=== PATIENT | female | born 1955 | race Caucasian/White ===

== ENCOUNTER → 2017-06-27 | Day surgery (SDC) | payer BC ==
[~2017-06-27] MED LIST: AMLODIPINE BESYL5 MG PO; BENICAR PO; HYDROCHLOROTH12.5 M1 PO; JANUVIA100 MG PO; METFORMIN HCL500 M4 PO; MULTI VITAMIN1 EACH PO; ZOCOR20 MG PO
--- NOTE | ~2017-06-27 | OR ---
Unit #: [id number] #: [id number] Patient: SCOTTY CARLTON [id number] [address] [address] [id number] O MR#: [id number] NAME: SCOTTY CARLTON ROOM: Date of Procedure: 06/27/2017 Admission Date: 06/27/2017 Surgeon: Tristen Goss M.D. : 1955 Attending Physician: Tristen Goss M.D. OPERATIVE REPORT PREOPERATIVE DIAGNOSIS Enlarging Pilar cyst x2 of scalp. POSTOPERATIVE DIAGNOSIS Enlarging Pilar cyst x2 of scalp. PROCEDURE PERFORMED Excision of enlarging Pilar cyst of anterior scalp x2 (1 cm each) with primary closure. ANESTHESIA Versed 2 mg and Demerol 50 mg each IV push in divided dosages with continuous cardiac and O2 saturation monitoring, 1% Xylocaine plain local anesthesia. FINDINGS Each was consistent with a Pilar cyst and was completely excised and sent to pathology. SPECIMENS Sent to pathology. COMPLICATIONS None apparent. CONDITION The patient tolerated the procedure well. INDICATIONS FOR PROCEDURE The patient is a 62-year-old white female, who has enlarging Pilar cyst in the anterior scalp x2. She presents at this time for excision of her pathologic diagnosis and treatment. DESCRIPTION OF PROCEDURE After obtaining informed consent, the patient was brought to the operating room and after adequate IV sedation, had the two areas prepped and draped in a sterile fashion. Each area was anesthetized with 1% Xylocaine plain local anesthesia. An elliptical incision was made with a knife over the top of the cyst and the entire cyst wall was completely dissected free and removed. In each location, the wound was copiously irrigated. Good hemostasis was obtained with Bovie and had primary closure performed with Unit #: [id number] #: [id number] Patient: SCOTTY CARLTON interrupted 3-0 Prolene vertical mattress sutures. Good hemostasis was obtained. A thin layer of antibiotic ointment was placed in each location. Needle counts, sponge counts, and instrument counts were all correct as reported by the scrub nurse x2. The patient went from the operating room to recovery room in stable condition. Dictated by... Jigar Sutton/landry TD: 06/27/2017 09:19 JOB #: [id number] CC: [facility] OPERATIVE REPORT Page 1 of 1 X Tristen Goss MD PROCEDURE OPERATIVE NOTE
== END | disposition home or self-care (01) ==
LOC: CSUR 05:57
DX: L72.11 Pilar cyst (principal); I10 Essential (primary) hypertension; E11.9 Type 2 diabetes mellitus without complications; E78.5 Hyperlipidemia, unspecified; K21.9 Gastro-esophageal reflux disease without esophagitis; E78.00 Pure hypercholesterolemia, unspecified; M17.10 Unilateral primary osteoarthritis, unspecified knee; E53.8 Deficiency of other specified B group vitamins; E55.9 Vitamin D deficiency, unspecified; F17.210 Nicotine dependence, cigarettes, uncomplicated; Z85.3 Personal history of malignant neoplasm of breast; Z88.1 Allergy status to other antibiotic agents; Z79.84 Long term (current) use of oral hypoglycemic drugs; Z79.899 Other long term (current) drug therapy; Z90.710 Acquired absence of both cervix and uterus; Z98.890 Other specified postprocedural states
CPT/HCPCS: 82947; 88304; J2175; J2250; J3370